=== PATIENT | female | born 1990 ===

== ENCOUNTER 2017-06-04 11:23 | Day surgery (SDC) | payer OTHER ==
[2017-06-04] MEDS ORDERED: VERSED IV PRN (12:40)
--- NOTE | 2017-06-04 12:40 | Anesthesia Consultation ---
Anesthesia Consult and Med Hx Date of service: 06/04/17 - Airway Anesthetic Teeth Evaluation: Good ROM Head & Neck: Adequate Mental/Hyoid Distance: Adequate Mallampati Class: Class II Intubation Access Assessment: Good - Pulmonary Exam CTA: Yes - Cardiac Exam Cardiac Exam: RRR - Pre-Operative Health Status ASA Pre-Surgery Classification: ASA2 Proposed Anesthetic Plan: General - Other Systems Hx Obesity: Yes - Additional Comments Anesthesia Medical History Comments: Informed consent obtained
--- NOTE | 2017-06-04 12:40 | Anesthesia Day of Surgery ---
Anesthesia Day of Surgery - Day of Surgery Patient Examined: Yes Patient H&P Reviewed: Yes Patient is NPO: Yes
[2017-06-04] MEDS ORDERED: DILAUDID IV PRN (12:41)
[2017-06-04] MEDS ORDERED: NACL 0.9% 1000 ML 1,000 ML IV SCH (13:00)
[2017-06-04] MEDS ORDERED: PEPCID IV NR (13:00)
[2017-06-04] MEDS ORDERED: HEPARIN SUB-Q NR (13:15)
[2017-06-04] MEDS ORDERED: ANCEF/STERILE WATER 2 GM/20 ML IV NR (13:20)
[2017-06-04 13:45] LABS: BUN/Creatinine Ratio 14; Blood Urea Nitrogen 7 mg/dL (7-17); Calcium 9.6 mg/dL (8.4-10.2)
[2017-06-04 13:46] LABS: Alanine Aminotransferase 45 units/L (7-56); Albumin 4.4 g/dL (3.9-5); Hemolysis Index 0
--- NOTE | 2017-06-04 14:56 | Procedure Note ---
Date of procedure: 06/04/17 Pre-op diagnosis: Chronic cholecystitis Post-op diagnosis: same Procedure: Pt was placed supine on the OR table. GETA was administered. Abdomen was prepped and draped. Proposed trocar sites were infiltrated with 10 ml of 0.5% Marcaine. A small periumbilical incision was made, linea alba incised and the peritoneal cavity carefully entered. A blunt 10 mm port was inserted into the peritoneal cavity and pneumoperitoneum obtained. A blunt 10 mm subxiphoid, 5 mm RUQ and 5 mm right lateral ports were inserted into the peritoneal cavity under direct vision without incident. Pt was placed in a reverse Trendelenburg position and her right side rotated upward. Fundus of the gallbladder was grasped and was retracted cephalad and laterally. The critical view of safety was obtained by skeletonizing the neck of the gallbladder, cystic duct and cystic artery. The cystic duct was milked toward the gallbladder and the cystic duct doubly clipped and divided. The cystic artery was doubly clipped and divided. Gallbladder was dissected off of it's hepatic fossa with electrocautery. It was placed in an endobag and the endobag and gallbladder were removed via the umbilical fascial defect. Pneumoperitoneum was re- established. The upper abdominal ports were removed and there was no bleeding from the port entry sites under low pressure. The umbilical port was removed and the pneumoperitoneum was released. The umbilical fascial defect was closed with two interrupted sutures of 0-Vicryl. Skin incisions were closed with running subcuticular sutures of 4-0 Monocryl. Sterile absorbent dressings were applied and secured with Tegaderm. Pt tolerated the procedure well. She was extubated in the OR and was taken to PACU in stable condition. Anesthesia: GETA Surgeon: CAROLA DEMARCO Estimated blood loss: minimal Pathology: list (Gallbladder) Specimen disposition: to lab Condition: stable Disposition: PACU
[2017-06-04] MEDS ORDERED: DIPRIVAN 10 MG/ML IV ONE (14:58)
[2017-06-04] MEDS ORDERED: DILAUDID ONE (14:58)
[2017-06-04] MEDS ORDERED: QUELICIN ONE (15:00)
[2017-06-04] MEDS ORDERED: XYLOCAINE MPF 2% ONE (15:00)
[2017-06-04] MEDS ORDERED: ZEMURON IV ONE (15:00)
[2017-06-04] MEDS ORDERED: NACL 0.9% IR ONE ×2 (15:42)
[2017-06-04] MEDS ORDERED: MARCAINE 0.5% INFILTRATI ONE ×2 (15:43)
[2017-06-04] MEDS ORDERED: ROBINUL ONE (16:25)
[2017-06-04] MEDS ORDERED: TORADOL ONE (16:25)
[2017-06-04] MEDS ORDERED: NEOSTIGMINE ONE (16:25)
[2017-06-04] MEDS ORDERED: ZOFRAN ONE (16:25)
[2017-06-04] MEDS: DILAUDID IV PRN ×4 (16:45→17:15)
[2017-06-04] MEDS ORDERED: ZOFRAN IV PRN (16:49)
[2017-06-04] MEDS ORDERED: PERCOCET 5/325 PO PRN (17:02)
[2017-06-04 18:27] VITALS: BP 116/79
== END 2017-06-04 18:15 | disposition home or self-care (01) ==
LOC: OR 11:23
PROVIDERS: ATTEND Surgery
DX: K80.10 Calculus of gallbladder with chronic cholecystitis without obstruction (principal); E66.9 Obesity, unspecified; Z68.35 Body mass index [BMI] 35.0-35.9, adult
CPT/HCPCS: 36415; 47562; 80053; 81025; 88304; A4217; J0330; J0690; J1170; J1644; J1885; J2405; J2704; J2710; J7030; J2250